=== PATIENT | male | born 1995 | race Caucasian/White ===

== ENCOUNTER 2018-05-28 00:27 | Emergency (ER) | payer OTHER ==
[~2018-05-28] VITALS: Ht 180.3 cm; Wt 95.5 kg
[2018-05-28 00:34] VITALS: BP 137/81; TEMP 98
[2018-05-28] MEDS ORDERED: PREDNISONE20 MG PO (02:09)
[2018-05-28] MEDS ORDERED: ZITHROMAX Z PA250 MG PO (02:09)
[2018-05-28 02:15] VITALS: PULSE 98
== END 2018-05-28 02:15 | disposition home or self-care (01) ==
LOC: COL.ER 00:27
DX: J20.9 Acute bronchitis, unspecified (principal)